=== PATIENT | male | born 1975 | race Caucasian/White ===

== ENCOUNTER 2018-06-11 18:54 | Inpatient (IN) | payer OTHER ==
[~2018-06-11] VITALS: Ht 180.3 cm; Wt 85.1 kg
[2018-06-11] MEDS ORDERED: DIPHENHYDRAMINE 50 MG/ML, 1ML ONE ×2 (19:11→20:40)
[2018-06-11] MEDS ORDERED: FAMOTIDINE 20 MG/2 ML ONE (19:11)
[2018-06-11] MEDS ORDERED: DIPHENHYDRAMINE 50 MG/ML, 1ML IVPush ONE ×2 (19:30→21:00)
[2018-06-11] MEDS ORDERED: MAALOX/HYOSCYAMINE/LIDOCAINE 45 ML BTL PO ONE (19:30)
[2018-06-11] MEDS ORDERED: SODIUM CHLORIDE FLUSH 10ML SYR IVF ONE (19:30)
[2018-06-11] MEDS ORDERED: FAMOTIDINE 20 MG/2 ML IVPush ONE (19:30)
[2018-06-11 19:34] LABS: ALANINE AMINOTRANSFERASE 14 U/L (12-78); ALBUMIN 3.7 g/dL (3.4-5.0); ANION GAP 10 mmol/L (5-15); CALCIUM 8.7 mg/dL (8.5-10.1); CHLORIDE 105 mmol/L (98-107)
[2018-06-11 19:36] LABS: ALKALINE PHOSPHATASE 70 U/L (45-117); BILIRUBIN,TOTAL 0.2 mg/dL (0.2-1.0); CREATININE 0.85 mg/dL (0.7-1.3); TOTAL PROTEIN 7.5 g/dL (6.4-8.2)
[2018-06-11] MEDS ORDERED: MAALOX/HYOSCYAMINE/LIDOCAINE 45 ML BTL ONE (19:42)
[2018-06-11 19:43] LABS: MEAN CORPUSCULAR HEMOGLOBIN 23.7 pg (27.5-34.5); MEAN CORPUSCULAR HGB CONC 32.2 g/dL (33.2-36.2); MEAN CORPUSCULAR VOLUME 73.7 fL (81-97); MEAN PLATELET VOLUME 7.4 fL (7.4-10.4); PLATELET COUNT 434 x10^3/uL (130-400); RED CELL DISTRIBUTION WIDTH 18.6 % (9.4-14.8)
[2018-06-11] MEDS ORDERED: ONDANSETRON ODT 4 MG ONE (19:48)
[2018-06-11] MEDS ORDERED: ONDANSETRON ODT 4 MG PO ONE (20:00)
[2018-06-11 20:14] LABS: MD YES
[2018-06-11 20:18] LABS: EOS#(MANUAL) 0.97 x10^3/uL (0.0-0.4); EOS% (MANUAL) 21 % (1-7); LYMPHS% (MANUAL) 37 % (22-44); MONOS#(MANUAL) 0.23 x10^3/uL (0.3-2.7); MONOS% (MANUAL) 5 % (2-9); SEGS% (MANUAL) 37 % (42-75)
[2018-06-11 20:19] LABS: ANISOCYTOSIS 1+; HYPOCHROMIA 1+; MICROCYTOSIS 1+
[2018-06-11 20:20] LABS: <PLATELET ESTIMATE> ADEQUATE; <PLT MORPHOLOGY> NORMAL PLT MORPH
[2018-06-11] MEDS ORDERED: MORPHINE SULFATE 4 MG/ML, 1ML IVPush ONE (20:30)
[2018-06-11] MEDS ORDERED: SODIUM CHLORIDE 0.9% 1,000ML IVBOLUS ONE (20:30)
[2018-06-11] MEDS ORDERED: MORPHINE SULFATE 4 MG/ML, 1ML ONE (20:36)
[2018-06-11 21:32] LABS: CULTURE INDICATED? NO; MICROSCOPIC NOT IND
[2018-06-11] MEDS ORDERED: OMNIPAQUE 350 MG/ML, 100ML BOTTLE ONE (21:32)
[2018-06-11] MEDS ORDERED: HYDROmorphone 2 MG/ML, 1ML ONE (22:15)
[2018-06-11] MEDS ORDERED: HYDROmorphone 2 MG/ML, 1ML IVPush PRN (22:30)
[2018-06-11] MEDS ORDERED: SERT50TA5 PO (23:04)
[2018-06-11] MEDS ORDERED: ALPR2TAB8 SL (23:05)
[2018-06-11] MEDS ORDERED: SODIUM CHLORIDE 0.9% 1,000 ML IV SCH (23:23)
[2018-06-11] MEDS ORDERED: SODIUM CHLORIDE 0.9% 1,000 ML IV ONE (23:29)
[2018-06-11] MEDS ORDERED: BISACODYL 10 MG SUPP PR PRN (23:30)
[2018-06-11] MEDS ORDERED: LABETALOL 5MG/ML, 20ML IVPush PRN (23:30)
[2018-06-11] MEDS ORDERED: DOCUSATE 100 MG CAPSULE PO PRN (23:30)
[2018-06-11] MEDS ORDERED: ONDANSETRON 2MG/ML, 2ML IVPush PRN (23:30)
[2018-06-11] MEDS ORDERED: ONDANSETRON ODT 4 MG PO PRN (23:30)
[2018-06-11] MEDS ORDERED: POLYETHYLENE GLYCOL 17 GM PACKET PO PRN (23:30)
[2018-06-11] MEDS ORDERED: hydrALAzine 20 MG/ML, 1ML IVPush PRN (23:30)
[2018-06-11] MEDS ORDERED: SODIUM CHLORIDE FLUSH 10ML SYR IVF PRN (23:30)
[2018-06-12] MEDS ORDERED: DIPHENHYDRAMINE 25 MG CAPSULE PO PRN
[2018-06-12 00:07] LABS: FREE T4 (FREE THYROXINE) 0.91 ng/dL (0.76-1.46); THYROID STIMULATING HORMONE 1.72 mIU/L (0.358-3.740)
[2018-06-12] MEDS ORDERED: PANTOPRAZOLE 40 MG IV ONE (00:34)
[2018-06-12] MEDS: PANTOPRAZOLE 40 MG IV IVPush SCH ×2 (00:37→12:41)
[2018-06-12] MEDS ORDERED: MORPHINE SULFATE 4 MG/ML, 1ML ONE (00:44)
[2018-06-12] MEDS: morphine SULFATE 10 MG/ML, 1ML IVPush PRN ×3 (00:47→06:45)
[2018-06-12] MEDS: SERTRALINE 50MG TABLET PO SCH ×2 (01:35→20:37)
[2018-06-12] MEDS: ALPRazolam 1MG TABLET PO PRN ×4 (01:35→20:37)
[2018-06-12] MEDS: OXYcodone IR 5MG TABLET PO PRN ×5 (01:46→19:52)
[2018-06-12 02:00] VITALS: BP 98/65
[2018-06-12] MEDS ORDERED: DIPHENHYDRAMINE 50 MG/ML, 1ML IV ONE (02:00)
[2018-06-12 03:30] LABS: CHOL/HDL RATIO 4.2; LDL/HDL RATIO 2.5 (0.5-3.0)
[2018-06-12 07:07] VITALS: BP 102/72
[2018-06-12] MEDS ORDERED: PROPOFOL 10 MG/ML, 50ML ONE (08:45)
[2018-06-12] MEDS ORDERED: LABETALOL 5MG/ML, 20ML IV PRN (09:00)
[2018-06-12] MEDS ORDERED: ACETAMINOPHEN 325 MG TABLET PO PRN (09:00)
[2018-06-12] MEDS ORDERED: ALBUTEROL/IPRATROPIUM 2.5MG/0.5MG, 3 ML NPPB PRN (09:00)
[2018-06-12] MEDS ORDERED: PROMETHAZINE 25 MG SUPP PR PRN (09:00)
[2018-06-12] MEDS ORDERED: ONDANSETRON ODT 8 MG PO PRN (09:00)
[2018-06-12] MEDS ORDERED: FENTANYL PF 100 MCG/2ML ONE (09:07)
[2018-06-12] MEDS ORDERED: MIDAZOLAM 1 MG/ML, 2ML ONE (09:08)
[2018-06-12] MEDS: FENTANYL PF 100 MCG/2ML IV PRN ×2 (09:09→09:20)
[2018-06-12] MEDS: MIDAZOLAM 1 MG/ML, 2ML IV PRN ×2 (09:11→09:21)
[2018-06-12] MEDS ORDERED: MAALOX/HYOSCYAMINE/LIDOCAINE 45 ML BTL PO ONE (09:30)
[2018-06-12] MEDS: SUCRALFATE 1 GM TABLET PO SCH ×4 (10:38→20:37)
[2018-06-12 18:25] VITALS: BP 114/56
[2018-06-12 21:39] LABS: OCCULT BLOOD NEGATIVE (NEGATIVE)
[2018-06-13] MEDS: OXYcodone IR 5MG TABLET PO PRN ×3 (00:21→08:24)
[2018-06-13] MEDS: PANTOPRAZOLE 40 MG IV IVPush SCH (00:21)
[2018-06-13 00:36] VITALS: BP 111/71
[2018-06-13] MEDS: ALPRazolam 1MG TABLET PO PRN (04:42)
[2018-06-13 06:02] LABS: MEAN CORPUSCULAR HEMOGLOBIN 24.5 pg (27.5-34.5); MEAN CORPUSCULAR HGB CONC 33.2 g/dL (33.2-36.2); MEAN CORPUSCULAR VOLUME 73.8 fL (81-97); MEAN PLATELET VOLUME 7.6 fL (7.4-10.4); PLATELET COUNT 406 x10^3/uL (130-400); RED BLOOD COUNT 3.45 x10^6/uL (4.38-5.82)
[2018-06-13 06:03] LABS: ANION GAP 8 mmol/L (5-15); CALCIUM 8.6 mg/dL (8.5-10.1); CHLORIDE 107 mmol/L (98-107); CREATININE 0.81 mg/dL (0.7-1.3)
[2018-06-13 06:22] LABS: BASOPHILS # (AUTO) 0.02 x10^3/uL (0-0.1); BASOPHILS % (AUTO) 1 % (0-1); EOSINOPHILS # (AUTO) 1.06 x10^3/uL (0-0.4); EOSINOPHILS % (AUTO) 32 % (1-7); LYMPHOCYTES % (AUTO) 36 % (22-44); MD SCAN; MONOCYTES # (AUTO) 0.41 x10^3/uL (0.2-0.8); MONOCYTES % (AUTO) 12 % (2-9); NEUTROPHILS # (AUTO) 0.67 x10^3/uL (1.8-6.8); NEUTROPHILS % (AUTO) 20 % (42-75)
[2018-06-13] MEDS: SUCRALFATE 1 GM TABLET PO SCH (08:24)
[2018-06-13] MEDS ORDERED: IRON SUCROSE COMPLEX 100MG/5ML IV SCH (09:00)
== END 2018-06-13 10:05 | disposition left against medical advice (07) | DRG 378 ==
LOC: ED 23:00 → EDIP 23:29 → 3NE 06-12 01:10
PROVIDERS: ADMIT Internal Medicine; ATTEND Internal Medicine
PROC: 0DB68ZX Excision of Stomach, Via Natural or Artificial Opening Endoscopic, Diagnostic (ICD-10-PCS; 2018-06-12)
PROC: 0DB98ZX Excision of Duodenum, Via Natural or Artificial Opening Endoscopic, Diagnostic (ICD-10-PCS; principal; 2018-06-12 09:00)
DX: K25.4 Chronic or unspecified gastric ulcer with hemorrhage (principal); D62 Acute posthemorrhagic anemia; T78.2XXA Anaphylactic shock, unspecified, initial encounter; D50.9 Iron deficiency anemia, unspecified; F41.9 Anxiety disorder, unspecified; J02.9 Acute pharyngitis, unspecified; F32.9 Major depressive disorder, single episode, unspecified; Z91.018 Allergy to other foods; Z90.49 Acquired absence of other specified parts of digestive tract
CPT/HCPCS: 36415; 99285; S0028; 74177; 80048; 80053; 80061; 81003; 82272; 82728; 82784; 83036; 83516; 83540; 83550; 83605; 83631; 83690; 83735; 84439; 84443; 84466; 85014; 85018; 85025; 87177; 87209; 88305; 89055; 93005; 96361; 96374; 96375; 96376; G0378; J1170; J1756; J2250; J2704; J3010; Q0162; Q9967; C9113; J1200; J2270; J7030